=== PATIENT | female | born 1995 | race African-American/Black ===

== ENCOUNTER 2023-02-04 16:41 | Emergency (ER) | payer SELFPAY ==
[2023-02-04] MEDS ORDERED: Take Home: Amoxicillin/Clavulanate K 875-125 MG Tab, 2 Tab Pack PO ONE (17:01)
[2023-02-06 15:11] LABS: C.TRACHOMATIS BY TMA Negative (Negative); N.GONORRHOEAE BY TMA Negative (Negative); SOURCE URINE
== END 2023-02-04 17:14 | disposition home or self-care (01) ==
LOC: VM.ED 16:41
DX: K04.7 Periapical abscess without sinus (principal)
CPT/HCPCS: 87491; 87591; 99283; A9270-GY